=== PATIENT | female | born 1995 | race Caucasian/White ===

== ENCOUNTER 2021-11-29 14:44 | Inpatient (IN) | payer BC ==
[~2021-11-29] VITALS: Ht 152.4 cm; Wt 63.0 kg
[2021-11-29] MEDS ORDERED: ALBUTEROL (0.083%) 2.5MG/3ML NEB HHN STA (14:50)
[2021-11-29] MEDS ORDERED: IPRATROPIUM BROMIDE (0.02%) 0.5MG/2.5ML NEB HHN STA (14:50)
[2021-11-29] MEDS ORDERED: METHYLPREDNISOLONE SOD SUCC 125 MG/2 ML VIAL IV STA (14:50)
[2021-11-29] MEDS ORDERED: TERBUTALINE SULFATE 1MG/ML VIAL SUBCUT ONE (15:00)
[2021-11-29] MEDS ORDERED: ALBUTEROL (0.5%) 2.5MG/0.5ML NEB HHN ONE (15:05)
[2021-11-29] MEDS ORDERED: ALBUTEROL (0.083%) 2.5MG/3ML NEB ONE (15:07)
[2021-11-29] MEDS ORDERED: ONDANSETRON HCL 4MG/2ML INJ IV ONE ×2 (15:15→15:30)
[2021-11-29] MEDS ORDERED: SODIUM CHLORIDE 0.9% 1,000 ML IV ONE (15:30)
[2021-11-29] MEDS ORDERED: FAMOTIDINE 20MG/2ML VIAL IV ONE (15:30)
[2021-11-29 15:37] LABS: BASOPHILS % 0.1 % (0.0-2.0); EOSINOPHILS % 1.1 % (0.0-5.0); HEMATOCRIT. 41.2 % (36.0-48.0); HEMOGLOBIN. 13.9 g/dL (12.0-16.0); LYMPHOCYTES % 7.2 % (20.0-50.0); MEAN CORPUSCULAR HEMOGLOBIN 29.7 pg (28.0-32.0); MEAN CORPUSCULAR VOLUME 88.3 fL (81.0-99.0); MEAN PLATELET VOLUME 9.9 fl (7.4-10.4); MONOCYTES % 6.7 % (2.0-8.0); NEUTROPHILS % 84.9 % (40.0-76.0); PLATELET 185 x1000/uL (130-400); RED BLOOD CELL COUNT 4.67 mill/uL (4.2-5.4); RED CELL DISTRIBUTION WIDTH 14.3 % (11.6-14.6)
[2021-11-29 15:39] LABS: CHLORIDE 109 mEq/L (98-107)
[2021-11-29 15:42] LABS: HCG SCREEN NEGATIVE
[2021-11-29] MEDS ORDERED: KETOROLAC 15MG/ML VIAL IV ONE (16:00)
[2021-11-29] MEDS ORDERED: POTASSIUM CHLORIDE 20MEQ TABLET SR PO ONE (16:00)
[2021-11-29] MEDS ORDERED: PIPERACILLIN/TAZ 3.375G PREMIX 50 ML IV ONE (18:15)
[2021-11-29] MEDS ORDERED: DIATR MEGLU/DIATRIZOATE SOLN 30ML PO ONE (19:30)
[2021-11-29] MEDS ORDERED: DIATR MEGLU/DIATRIZOATE SOLN 120ML ONE (19:36)
[2021-11-29] MEDS ORDERED: IOHEXOL-300 100 ML BOTTLE ONE (22:41)
[2021-11-29] MEDS ORDERED: ONDANSETRON HCL 4MG/2ML INJ IV PRN (23:00)
[2021-11-29] MEDS ORDERED: DIPHENHYDRAMINE 50MG/ML VIAL IV PRN (23:00)
[2021-11-29] MEDS ORDERED: PIPERACILLIN/TAZ 3.375G PREMIX 50 ML IV SCH (23:00)
[2021-11-29] MEDS ORDERED: IPRATROPIUM/ALBUTEROL 0.5-3(2.5)MG/3ML NEB HHN PRN (23:00)
[2021-11-29] MEDS ORDERED: POTASSIUM CHLORIDE INJ 40 MEQ in DEXT 5% WATER 500 ML IV ONE (23:00)
[2021-11-29] MEDS ORDERED: SODIUM CHLORIDE 0.9% 1,000 ML IV SCH (23:00)
[2021-11-29] MEDS ORDERED: KCL 20MEQ/100ML X 2 FOR TOTAL KCL 40MEQ/200ML IV SCH (23:15)
[2021-11-30 01:51] VITALS: BP 127/61
[2021-11-30] MEDS ORDERED: LISD30CA PO (02:57)
[2021-11-30] MEDS ORDERED: MONT10TA32 MT (02:57)
[2021-11-30 04:00] VITALS: BP 108/70
[2021-11-30] MEDS ORDERED: KCL 20MEQ/100ML X 2 FOR TOTAL KCL 40MEQ/200ML IV SCH (04:15)
[2021-11-30] MEDS: PIPERACILLIN/TAZOBACTAM 3.375G in DEXT 5% WATER 50ML IV SCH ×3 (06:50→22:36)
[2021-11-30] MEDS ORDERED: BUPIVACAINE HCL/PF 0.5% (5MG/ML) 30ML ONE (07:21)
[2021-11-30] MEDS ORDERED: SKIN ADHESIVE 0.7 GM EA TOP ONE (07:21)
[2021-11-30] MEDS ORDERED: ONDANSETRON HCL 4MG/2ML INJ IV PRN (07:45)
[2021-11-30] MEDS ORDERED: MORPHINE SULFATE 4 MG/ML CPJ (NOT FOR IM USE) IV PRN (07:45)
[2021-11-30] MEDS ORDERED: ROCURONIUM BROMIDE 10MG/ML VIAL 5ML IV ONE (07:58)
[2021-11-30] MEDS ORDERED: PROPOFOL 200MG/20ML VIAL IV ONE (07:59)
[2021-11-30] MEDS ORDERED: HYDROMORPHONE HCL/PF 2MG/ML CPJ ONE (07:59)
[2021-11-30] MEDS ORDERED: NALOXONE HCL 0.4MG/ML VIAL IV PRN (08:00)
[2021-11-30 08:03] LABS: HEMATOCRIT. 33.2 % (36.0-48.0); HEMOGLOBIN. 11.1 g/dL (12.0-16.0); MEAN CORPUSCULAR HEMOGLOBIN 29.8 pg (28.0-32.0); MEAN CORPUSCULAR VOLUME 88.9 fL (81.0-99.0); MEAN PLATELET VOLUME 10.1 fl (7.4-10.4); PLATELET 177 x1000/uL (130-400); RED BLOOD CELL COUNT 3.73 mill/uL (4.2-5.4); RED CELL DISTRIBUTION WIDTH 14.3 % (11.6-14.6)
[2021-11-30] MEDS: DEXT 5%/0.45% NACL KCL 20MEQ/L 1,000 ML IV SCH ×2 (08:15→12:46)
[2021-11-30] MEDS: PANTOPRAZOLE SODIUM 40 MG/VIAL IV SCH (08:16)
[2021-11-30 08:40] LABS: CHLORIDE 112 mEq/L (98-107); PHOSPHORUS 2.4 mg/dL (2.5-4.9)
[2021-11-30] MEDS ORDERED: NEOSTIGMINE METHYLSULFATE 1MG/ML 10 ML VIAL ONE (09:01)
[2021-11-30] MEDS ORDERED: GLYCOPYRROLATE 0.2 MG/ML 2ML VIAL ONE (09:01)
[2021-11-30 09:26] LABS: PLATELET ESTIMATE NORMAL
[2021-11-30 12:00] VITALS: BP_SYST 115; BP_SYST 136; BP_DIAS 67; BP_DIAS 89
[2021-11-30] MEDS: KETOROLAC 15MG/ML VIAL IV PRN (12:44)
[2021-11-30] MEDS ORDERED: GUAIFENESIN 200MG/10ML SUGAR FREE UDC PO PRN (15:15)
[2021-11-30 16:00] VITALS: BP 112/68
[2021-11-30] MEDS ORDERED: MONTELUKAST SODIUM 10MG TABLET PO SCH (17:00)
[2021-11-30 17:32] VITALS: BP 111/84
[2021-11-30 20:00] VITALS: BP 98/48
[2021-12-01] VITALS: BP 99/41
[2021-12-01 04:00] VITALS: BP 99/46
[2021-12-01] MEDS: PIPERACILLIN/TAZOBACTAM 3.375G in DEXT 5% WATER 50ML IV SCH (05:38)
[2021-12-01] MEDS: KETOROLAC 15MG/ML VIAL IV PRN (05:38)
[2021-12-01] MEDS: PANTOPRAZOLE SODIUM 40 MG/VIAL IV SCH (08:30)
[2021-12-01 09:17] VITALS: BP 116/55
== END 2021-12-01 10:08 | disposition home or self-care (01) | DRG 342 ==
LOC: ER 14:44 → 7EST 20:49 → EDBEDREQ 21:33 → EDBEDREQTM 21:33 → ENRESERV 23:22 → 8WST 11-30 14:53
PROVIDERS: ADMIT Internal Medicine; ATTEND Internal Medicine
PROC: 0DTJ4ZZ Resection of Appendix, Percutaneous Endoscopic Approach (ICD-10-PCS; principal; 2021-11-30)
DX: K35.80 Unspecified acute appendicitis (principal); J45.901 Unspecified asthma with (acute) exacerbation; E87.6 Hypokalemia; Z20.822 Contact with and (suspected) exposure to COVID-19
CPT/HCPCS: 36415; 71045; 74176; 74177; 80048; 80053; 83605; 83735; 84100; 84703; 85025; 87426; 88304; 94640; 99285; C9113; C9803; J1170; J1885; J2270; J2405; J2543; J2704; J2710; J2930; J3105; J3480; J3490; J7030; J7060; Q9963; Q9967

== ENCOUNTER 2021-12-02 18:16 | Emergency (ER) | payer BC ==
[~2021-12-02] VITALS: Ht 157.5 cm; Wt 77.0 kg
[~2021-12-02 18:16] MED LIST: LISD30CA PO; MONT10TA32 MT
[2021-12-02 18:29] VITALS: BP 111/57
== END 2021-12-02 22:46 | disposition left against medical advice (07) ==
LOC: ER 18:16
DX: Z53.21 Procedure and treatment not carried out due to patient leaving prior to being seen by health care provider (principal)